=== PATIENT | male | born 1970 | race Caucasian/White ===

== ENCOUNTER 2017-01-22 07:40 | Emergency (ER) | payer OTHER ==
[2017-01-22] MEDS ORDERED: BOOSTRIX IM ONE (08:29)
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
[2017-01-22 10:14] LABS: Basophils % (Auto) 0.5 % (0.0-1.8); Eosinophils % (Auto) 3.8 % (0.0-4.3); Hematocrit 45.5 % (35.5-45.6); Hemoglobin 14.8 gm/dl (11.8-15.2); Mean Corpuscular HGB Conc 33 % (32-34); Mean Corpuscular Volume 79 fl (84-94); Platelet Count 168 K/mm3 (140-440); Red Blood Count 5.78 M/mm3 (3.65-5.03); Red Cell Distribution Width 14.2 % (13.2-15.2); White Blood Count 6.3 K/mm3 (4.5-11.0)
[2017-01-22 10:19] LABS: Mean Corpuscular Hemoglobin 26 pg (28-32)
[2017-01-22 10:24] LABS: INR 1.13 (0.87-1.13)
[2017-01-22 10:25] LABS: Partial Thromboplastin Time 35.6 Sec. (24.2-36.6)
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
[2017-01-22 10:36] LABS: Albumin/Globulin Ratio 1.2 %; BUN/Creatinine Ratio 8.46; Bilirubin,Total 0.5 mg/dL (0.1-1.2); Calcium 8.9 mg/dL (8.4-10.2); Chloride 101.9 mmol/L (98-107); Potassium 4.4 mmol/L (3.6-5.0); Total Protein 7.3 g/dL (6.3-8.2)
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
[2017-01-22] MEDS ORDERED: NACL ONE (11:54)
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
[2017-01-22] MEDS ORDERED: TORADOL IV ONE (14:02)
[2017-01-22] MEDS ORDERED: TRIPLE ANTIBIOTIC TP ONE (14:02)
[2017-01-22 14:45] VITALS: BP 132/80
== END 2017-01-22 14:46 | disposition home or self-care (01) ==
LOC: ED 07:40
DX: S50.812A Abrasion of left forearm, initial encounter (principal); S89.212A Salter-Harris Type I physeal fracture of upper end of left fibula, initial encounter for closed fracture; M54.5 Low back pain; G44.319 Acute post-traumatic headache, not intractable; M25.512 Pain in left shoulder; M25.551 Pain in right hip; M79.641 Pain in right hand; V29.9XXA Motorcycle rider (driver) (passenger) injured in unspecified traffic accident, initial encounter; Y93.9 Activity, unspecified; Y92.9 Unspecified place or not applicable; Y99.9 Unspecified external cause status
CPT/HCPCS: 36415; 70450; 71020; 72100; 72125; 73030; 73090; 73130; 73502; 73560; 74177; 80053; 85025; 85610; 85730; 90471; 90715; 96374; 99284; J1885; Q9967; A6250